=== PATIENT | male | born 1960 | race American Indian/Alaskan Native ===

== ENCOUNTER 2022-04-10 23:48 | Emergency (ER) | payer BC ==
[2022-04-11] MEDS ORDERED: KETOROLAC 30 MG/1 ML INJ IV ONE (03:20)
[2022-04-11] MEDS ORDERED: predniSONE 20 MG TAB PO ONE (03:20)
[2022-04-11] MEDS ORDERED: CYCLOBENZAPRINE 10 MG TAB PO ONE (03:20)
--- NOTE | 2022-04-11 05:14 | Emergency Department Report ---
ED Abdominal Pain HPI - General Chief Complaint: Abdominal Pain Stated Complaint: GAS IN STOMACH Time Seen by Provider: 04/11/22 02:33 Source: patient, family Mode of arrival: Ambulatory Limitations: No Limitations - History of Present Illness Initial Comments: 62 yo black male with no pmh presents to ed for evaluation of right rib pain. He states that he has been lifting some heavy objects at work the past few days and developed pain to right rib area yesterday. He denies fever, cp, sob, n/v, dizziness. He states that pain is significantly worse with movement. MD Complaint: other (right rib area) -: Gradual, days(s) (1) Location: R flank Radiation: none Migration to: no migration Severity scale (0 -10): 10 Quality: cramping, aching Consistency: constant Worsens With: movement Associated Symptoms: denies: nausea, vomiting, diarrhea, fever, chills, dysuria, hematemesis, hematochezia, melena, hematuria, anorexia, syncope - Related Data Previous Rx's Medication Instructions Recorded Last Taken Type Cyclobenzaprine [Flexeril] 10 mg PO TID PRN #30 tab 04/11/22 Unknown Rx Naproxen [Naprosyn] 500 mg PO BID #14 tab 04/11/22 Unknown Rx Allergies Allergy/AdvReac Type Severity Reaction Status Date / Time No Known Allergies Allergy Unverified 04/10/22 23:59 ED Review of Systems ROS: Stated complaint: GAS IN STOMACH Other details as noted in HPI Comment: All other systems reviewed and negative Constitutional: denies: chills, fever Eyes: denies: vision change ENT: denies: congestion Respiratory: denies: cough, shortness of breath Cardiovascular: denies: chest pain, palpitations, dyspnea on exertion, edema, syncope, paroxysmal nocturnal dyspnea Gastrointestinal: denies: abdominal pain, nausea, vomiting, diarrhea, hematemesis, melena Genitourinary: denies: urgency, dysuria, frequency, hematuria, discharge, testicular pain Musculoskeletal: denies: back pain Skin: denies: rash, lesions Neurological: denies: headache, weakness, numbness, paresthesias, confusion Psychiatric: denies: anxiety, depression Hematological/Lymphatic: denies: easy bleeding, easy bruising ED Past Medical Hx - Medications Home Medications: Home Medications Medication Instructions Recorded Confirmed Last Taken Type Cyclobenzaprine [Flexeril] 10 mg PO TID PRN #30 tab 04/11/22 Unknown Rx Naproxen [Naprosyn] 500 mg PO BID #14 tab 04/11/22 Unknown Rx ED Physical Exam - General Limitations: No Limitations General appearance: alert, in no apparent distress - Head Head exam: Present: atraumatic, normocephalic - Eye Eye exam: Present: normal appearance. Absent: conjunctival injection - Neck Neck exam: Present: normal inspection, full ROM. Absent: tenderness, lymphadenopathy - Respiratory Respiratory exam: Present: normal lung sounds bilaterally, chest wall tenderness. Absent: respiratory distress, wheezes, rales, rhonchi, stridor - Cardiovascular Cardiovascular Exam: Present: regular rate, normal heart sounds - Expanded Cardiovascular Exam Expanded 1 - tenderness to palpation - GI/Abdominal GI/Abdominal exam: Present: soft, normal bowel sounds. Absent: distended, tenderness, guarding, rebound, rigid - Extremities Exam Extremities exam: Present: normal inspection, full ROM. Absent: tenderness, normal capillary refill, pedal edema, joint swelling, calf tenderness - Back Exam Back exam: Present: normal inspection. Absent: tenderness, CVA tenderness (R), CVA tenderness (L) - Neurological Exam Neurological exam: Present: oriented X3 - Psychiatric Psychiatric exam: Present: normal affect, normal mood - Skin Skin exam: Present: warm, dry, intact, normal color ED Course Vital Signs 04/10/22 04/11/22 23:58 05:37 Temperature 97.9 F Pulse Rate 62 60 Respiratory 16 12 Rate Blood Pressure 135/73 132/76 [Right] O2 Sat by Pulse 99 100 Oximetry - Reevaluation(s) Reevaluation #1: 04/11/22 05:11 Right rib pain resolved after medication. ED Medical Decision Making - Medical Decision Making 62 yo black male with no pmh presents to ed for evaluation of right rib pain. He states that he has been lifting some heavy objects at work the past few days and developed pain to right rib area yesterday. He denies fever, cp, sob, n/v, dizziness. He states that pain is significantly worse with movement. Musculoskeletal pain only on exam. Pain improved after medications. Patient will to discharged home with naproxen and flexeril to take as directed and advised to follow up with pcp if worsening symptoms or return to ed for any concerning symptoms. He verbalized understanding of and agreement with plan of care. Critical care attestation.: If time is entered above; I have spent that time in minutes in the direct care of this critically ill patient, excluding procedure time. ED Disposition Clinical Impression: Rib pain on right side Disposition: HOME / SELF CARE / HOMELESS Is pt being admited?: No Does the pt Need Aspirin: No Condition: Stable Instructions: Chest Wall Pain, [id number] Additional Instructions: Take medications as prescribed. Follow-up with primary care provider if no improvement or worsening symptoms. Return to the emergency department as needed. Prescriptions: Cyclobenzaprine [Flexeril] 10 mg PO TID PRN #30 tab PRN Reason: Muscle Spasm Naproxen [Naprosyn] 500 mg PO BID #14 tab Referrals: JOSIE DEGROOT MD [Primary Care Provider] - 3-5 Days Forms: Work/School Release Form(ED), Accompanied Note Time of Disposition: 05:13
[2022-04-11 05:38] VITALS: BP 132/76
== END 2022-04-11 05:37 | disposition home or self-care (01) ==
LOC: ED 23:48
DX: R07.81 Pleurodynia (principal)
CPT/HCPCS: 93005; 96374; 99282; J1885